=== PATIENT | female | born 1970 | race Caucasian/White ===

== ENCOUNTER 2018-08-17 13:36 | Emergency (ER) | payer OTHER ==
[~2018-08-17] VITALS: Ht 167.6 cm; Wt 92.0 kg
[2018-08-17 13:40] VITALS: Ht 167.6 cm; Wt 92.0 kg
--- NOTE | 2018-08-17 14:32 | ERD ---
ER Documentation Chief Complaint Chief Complaint Complains of Dizziness x 3 days HPI Old female with hypertension and high cholesterol as well as HIV who presents with dizziness and shortness of breath. The patient said that yesterday she had a Monster drink and then started shaking afterwards. She felt dizzy and had chest pain last night. She had shortness of breath as well. She has HIV and is taking her medications. The symptoms lasted less than 5 minutes and she has no symptoms as of right now. Upon review of old medical records this is the patient's first visit to the emergency department. She does have a primary d octor. ROS All systems reviewed and are negative except as per history of present illness. PMhx/Soc History of Surgery: No Anesthesia Reaction: No Hx Neurological Disorder: No Hx Respiratory Disorders: No Hx Cardiac Disorders: Yes (HTN, HIGH CHOLESTEROL) Hx Psychiatric Problems: No Hx Miscellaneous Medical Probl: Yes (HIV) Hx Alcohol Use: No Hx Substance Use: No Hx Tobacco Use: No Smoking Status: Never smoker FmHx Family History: No coronary disease Physical Exam Vitals Vital Signs Date Temp Pulse Resp B/P (MAP) Pulse Ox O2 O2 Flow FiO2 Time Delivery Rate 08/17/18 99.2 82 20 144/94 99 13:40 (111) Physical Exam Const: No acute distress Head: Atraumatic Eyes: Normal Conjunctiva ENT: Normal External Ears, Nose and Mouth. Neck: Full range of motion. No meningismus. Resp: Clear to auscultation bilaterally Cardio: Regular rate and rhythm, no murmurs Abd: Soft, non tender, non distended. Normal bowel sounds Skin: No petechiae or rashes Back: No midline or flank tenderness Ext: No cyanosis, or edema Neur: Awake and alert Psych: Normal Mood and Affect Result Diagram: 08/17/18 1417 Results 24 hrs Laboratory Tests Test 08/17/18 14:17 White Blood Count 8.4 10^3/ul Red Blood Count 4.48 10^6/ul Hemoglobin 13.8 g/dl Hematocrit 39.9 % Mean Corpuscular Volume 89.1 fl Mean Corpuscular Hemoglobin 30.8 pg Mean Corpuscular Hemoglobin Concent 34.6 g/dl Red Cell Distribution Width 12.3 % Platelet Count 229 10^3/UL Mean Platelet Volume 10.4 fl Immature Granulocytes % 0.200 % Neutrophils % 64.3 % Lymphocytes % 27.6 % Monocytes % 6.4 % Eosinophils % 1.1 % Basophils % 0.4 % Nucleated Red Blood Cells % 0.0 /100WBC Immature Granulocytes # 0.020 10^3/ul Neutrophils # 5.4 10^3/ul Lymphocytes # 2.3 10^3/ul Monocytes # 0.5 10^3/ul Eosinophils # 0.1 10^3/ul Basophils # 0.0 10^3/ul Nucleated Red Blood Cells # 0.0 10^3/ul Procedures/MDM EKG read by me: Rate/Rhythm: Regular rate and rhythm at a rate of 78 Intervals: Normal Impression: No evidence of ischemia or arrhythmia Chest x-ray read by radiology. Patient is a 48-year-old female who presents with shortness of breath, chest pain, and dizziness. She has no symptoms at this time. Laboratory studies are pending at this time. EKG was normal. If after studies are normal I believe outpatient management would be appropriate as I doubt acute coronary syndrome, pneumonia, pneumothorax, pulmonary embolism, or aortic dissection. The patient will need to follow-up closely with her primary doctor within 24-48 hours however. Return for any worsening symptoms. Departure Diagnosis: Primary Impression: Chest pain Chest pain type: unspecified Qualified Codes: R07.9 - Chest pain, unspecified Additional Impression: Dizziness Condition: Fair Patient Instructions: Chest Pain, Uncertain Cause, Dizziness, Unk Cause Referrals: Your doctor Additional Instructions: Call your primary care doctor TOMORROW for an appointment during the next 1-2 days.See the doctor sooner or return here if your condition worsens before your appointment time. ANSELMO OLSEN MD Aug 17, 2018 14:32
[2018-08-17] MEDS ORDERED: CHOL200078 PO (14:44)
[2018-08-17] MEDS ORDERED: EMTR1TAB17 PO (14:44)
[2018-08-17] MEDS ORDERED: ATOR40TA68 PO (14:45)
[2018-08-17] MEDS ORDERED: RANI150T5 PO (14:45)
[2018-08-17] MEDS ORDERED: ACET500T98 PO (14:46)
[2018-08-17 15:38] VITALS: BP 132/89; PULSE 79; RESP 17
== END 2018-08-17 15:41 | disposition home or self-care (01) ==
LOC: E/R 13:36
DX: R07.9 Chest pain, unspecified (principal); I10 Essential (primary) hypertension; Z21 Asymptomatic human immunodeficiency virus [HIV] infection status
CPT/HCPCS: 36415; 71045; 80048; 81025; 84484; 85025; 93005; Z7502